=== PATIENT | male | born 1995 | race Caucasian/White ===

== ENCOUNTER 2016-11-18 20:15 | Emergency (ER) | payer BC, OTHER ==
[~2016-11-18] VITALS: Ht 188 cm; Wt 89.5 kg
[2016-11-18] MEDS ORDERED: CEPHALEXIN 500 MG CAP PO ONE (20:45)
[2016-11-18] MEDS ORDERED: NEOSPORIN OINT 0.9 GM PKT (FLOOR STOCK) As Ordered ONE (21:28)
[2016-11-18] MEDS ORDERED: KEFL500C17 PO (21:49)
[2016-11-18 21:51] VITALS: BP 138/74
--- NOTE | 2016-11-18 22:47 | REP ---
Clinical: Trauma. Laceration. Technique: AP, lateral, bilateral oblique views right foot . Findings: The osseous structures and joint spaces are intact and normal. There is no evidence for acute fracture or dislocation. Surrounding soft tissues are unremarkable. No subcutaneous emphysema or radiodense foreign body. Impression: No foreign body. No acute fracture or dislocation. Signed by Filiberto White MD 11/18/2016 10:39 P
== END 2016-11-18 21:53 | disposition home or self-care (01) ==
LOC: M ED 21:02
DX: S91.312A Laceration without foreign body, left foot, initial encounter (principal); S90.32XA Contusion of left foot, initial encounter; W18.49XA Other slipping, tripping and stumbling without falling, initial encounter; Y99.9 Unspecified external cause status; Y93.19 Activity, other involving water and watercraft; Y92.89 Other specified places as the place of occurrence of the external cause

== ENCOUNTER → 2018-01-12 | Outpatient (REF) | payer BC, OTHER ==
[2018-01-14 08:27] LABS: HERPES ZOSTER, VARICELLA IgG >4000 index (Immune >165)
== END ==
LOC: M LAB REF 18:54
DX: Z00.00 Encounter for general adult medical examination without abnormal findings (principal)
CPT/HCPCS: 86787

== ENCOUNTER → 2019-08-25 | Outpatient (REF) | payer OTHER ==
[~2019-08-25] MED LIST: KEFL500C17 PO
== END ==
LOC: M LAB REF 16:11
PROVIDERS: ATTEND Internal Medicine
DX: R20.2 Paresthesia of skin (principal)

== ENCOUNTER → 2019-10-25 | Outpatient (REF) | payer OTHER | LOC: M LAB REF 16:11 | PROVIDERS: ATTEND Internal Medicine | DX: D51.8 Other vitamin B12 deficiency anemias (principal) ==

== ENCOUNTER → 2020-08-28 | Outpatient (REF) | payer OTHER | LOC: M LAB REF 12:21 | PROVIDERS: ATTEND Internal Medicine | DX: D51.9 Vitamin B12 deficiency anemia, unspecified (principal) ==